=== PATIENT | female | born 1930 | race Caucasian/White ===

== ENCOUNTER → 2016-03-27 | Outpatient (CLI) | payer MEDICARE ==
[~2016-03-27] MED LIST: ALPR.25T PO; ASPI-586 PO; ATOR10TA PO; CARV3.12 PO; FURO-125 PO; HYDR-3702 PO; INSU100V32 SQ; LORA0.5T PO; LSNP10T PO; LVT.05T PO; SPRN25T PO; WARF2.5T PO
[2016-03-27 08:22] LABS: ANION GAP 13.7 MEQ/L (3-15)
== END ==
LOC: LAB 07:43
PROVIDERS: ATTEND Internal Medicine
DX: Z51.81 Encounter for therapeutic drug level monitoring (principal); Z79.01 Long term (current) use of anticoagulants; R79.89 Other specified abnormal findings of blood chemistry; E11.9 Type 2 diabetes mellitus without complications; N18.3 Chronic kidney disease, stage 3 (moderate)
CPT/HCPCS: 36415; 80048; 82306; 83036; 85610

== ENCOUNTER → 2016-06-23 | Outpatient (CLI) | payer MEDICARE ==
[2016-06-23 08:39] LABS: ANION GAP 15.4 MEQ/L (3-15)
== END ==
LOC: LAB 07:58
PROVIDERS: ATTEND Internal Medicine
DX: Z51.81 Encounter for therapeutic drug level monitoring (principal); Z79.01 Long term (current) use of anticoagulants; E11.9 Type 2 diabetes mellitus without complications; I10 Essential (primary) hypertension; R79.89 Other specified abnormal findings of blood chemistry; E55.9 Vitamin D deficiency, unspecified
CPT/HCPCS: 36415; 80048; 82306; 83036; 85610